=== PATIENT | female | born 2000 | race Caucasian/White ===

== ENCOUNTER 2019-05-25 22:53 | Emergency (ER) | payer MEDICAID ==
[~2019-05-25] VITALS: Ht 160 cm; Wt 68.0 kg
[2019-05-25 22:55] VITALS: BP 135/90
--- NOTE | 2019-05-25 22:58 | NUR ---
to lobby a/w bed ambulatory
--- NOTE | 2019-05-25 23:12 | NUR ---
PT TAKEN TO BED 6
--- NOTE | 2019-05-25 23:25 | NUR ---
Dr. Walker examining patient.
--- NOTE | 2019-05-25 23:25 | NUR ---
19 y/o female c/o batista x 2 -3 weeks that getting worse over time. rates pain 7/10 and describes it as throbbing and is located on the right side of head. pt states she has nausea, double vision, unsteady gait, dizziness. a&o x4. denies any head truama or injury. took ibuprofen x 1hr ago. nka. pmh: migraines
--- NOTE | 2019-05-25 23:27 | NUR ---
pernell haider at bedside to eval pt.
[2019-05-25] MEDS ORDERED: diphenhydrAMINE 50 MG/ML VIAL IM ONE (23:35)
[2019-05-25] MEDS ORDERED: PROCHLORPERAZINE 10 MG/2 ML VIAL IM ONE (23:35)
[2019-05-26 00:25] VITALS: BP 135/90
== END 2019-05-26 00:25 | disposition home or self-care (01) ==
LOC: MED 22:53
DX: G43.909 Migraine, unspecified, not intractable, without status migrainosus (principal); R11.0 Nausea; H53.149 Visual discomfort, unspecified
CPT/HCPCS: 81002; 81025; 96372; 99284; J0780; J1200

== ENCOUNTER 2019-06-13 11:12 | Emergency (ER) | payer MEDICAID ==
[~2019-06-13] VITALS: Ht 160 cm; Wt 69.4 kg
[2019-06-13 11:16] VITALS: BP 130/93
--- NOTE | 2019-06-13 11:25 | NUR ---
PT AMBULATED TO ER BED 04
--- NOTE | 2019-06-13 11:28 | NUR ---
flu swab collected and handed to lab
--- NOTE | 2019-06-13 11:33 | NUR ---
eturned from [facility] for sprink break with family c/o intermittent moist cough, nasal congestion, and scratchy throat x 2 days denies fever or sob---full clear speech, no accessory muscle use noted denies being in contact with anyone known with messina virus
--- NOTE | 2019-06-13 11:43 | NUR ---
xray at bedside.
[2019-06-13 12:06] LABS: APPEARANCE,URINE SL CLOUDY (CLEAR); BILIRUBIN,URINE NEGATIVE (NEGATIVE); BLOOD, URINE NEGATIVE (NEGATIVE); COLOR,URINE YELLOW (YELLOW); LEUKOCYTE ESTERASE ,URINE 3+ (NEGATIVE); NITRITE, URINE NEGATIVE (NEGATIVE); PH,URINE 6.5 (5.0-9.0); UGLUCOSE NEGATIVE (NEGATIVE)
[2019-06-13 12:24] LABS: RBC,URINE 0-5 /HPF (0-5)
--- NOTE | 2019-06-13 12:32 | NUR ---
pt. resting in bed comfortably, no further needs at this time. bed lowest, locked, rails up x1. AAOx4.
--- NOTE | 2019-06-13 13:06 | NUR ---
DPatient discharged with v/s stable. Written and verbal after care instructions given and explained. Patient alert, oriented and verbalized understanding of instructions. Ambulatory with steady gait. All questions addressed prior to discharge. ID band removed. Patient advised to follow up with PMD. Rx of PROMETHAZINE given. Patient educated on indication of medication including possible reaction and side effects. Opportunity to ask questions provided and answered.
[2019-06-13 13:07] VITALS: BP 140/92
== END 2019-06-13 13:06 | disposition home or self-care (01) ==
LOC: MED 11:12
DX: J06.9 Acute upper respiratory infection, unspecified (principal)
CPT/HCPCS: 71045; 81001; 81025; 87086; 87804; 99284; Q0092; 81002

== ENCOUNTER 2020-05-18 02:07 | Emergency (ER) | payer MEDICAID, OTHER ==
[~2020-05-18] VITALS: Ht 160 cm; Wt 70.8 kg
[2020-05-18 02:18] VITALS: BP 115/87
[2020-05-18] MEDS ORDERED: IBUPROFEN 800 MG TAB PO ONE (02:40)
[2020-05-18 03:05] VITALS: BP 121/79
== END 2020-05-18 03:05 | disposition home or self-care (01) ==
LOC: MED 02:07
DX: M94.0 Chondrocostal junction syndrome [Tietze] (principal); R03.0 Elevated blood-pressure reading, without diagnosis of hypertension
CPT/HCPCS: 93005; 99283

== ENCOUNTER 2020-11-17 03:50 | Emergency (ER) | payer OTHER ==
[~2020-11-17] VITALS: Ht 160 cm; Wt 70.3 kg
[2020-11-17 04:02] VITALS: BP 115/82
--- NOTE | 2020-11-17 04:15 | NUR ---
AMBULATED TO BED 9 FROM TRIAGE
--- NOTE | 2020-11-17 04:20 | NUR ---
Penelope shaw in [facility] - 11/17/20 at 0625 by [facility] TO ER BED 9
[2020-11-17] MEDS: METOCLOPRAMIDE 10 MG TAB PO ONE (05:16)
[2020-11-17] MEDS: IBUPROFEN 600 MG TAB PO ONE (05:17)
[2020-11-17] MEDS: SUMAtriptan succinate 50 MG TAB PO ONE (05:17)
[2020-11-17] MEDS ORDERED: METO-486 PO (05:32)
[2020-11-17 05:43] VITALS: BP 116/85
--- NOTE | 2020-11-17 05:43 | NUR ---
Patient discharged with v/s stable. Written and verbal after care instructions given and explained. Patient alert, oriented and verbalized understanding of instructions. Ambulatory with steady gait. All questions addressed prior to discharge. ID band removed. Patient advised to follow up with PMD. Rx of REGLAN given. Patient educated on indication of medication including possible reaction and side effects. Opportunity to ask questions provided and answered.
== END 2020-11-17 05:43 | disposition home or self-care (01) ==
LOC: MED 03:50
DX: G43.909 Migraine, unspecified, not intractable, without status migrainosus (principal); F17.210 Nicotine dependence, cigarettes, uncomplicated
CPT/HCPCS: 81025; 99284; J8597

== ENCOUNTER 2021-01-12 17:51 | Emergency (ER) | payer OTHER ==
[~2021-01-12] VITALS: Ht 160 cm; Wt 72.1 kg
[~2021-01-12 17:51] MED LIST: METO-486 PO
[2021-01-12 17:59] VITALS: BP 145/87
--- NOTE | 2021-01-12 18:45 | NUR ---
PT AMBULATED TO BED
--- NOTE | 2021-01-12 19:00 | NUR ---
20 Y/O F BIB SELF FROM HOME, C/O STATES SHE MAY HAVE HAD A POSSIBLE MISCARRIAGE, PT STATES TODAY SHE FELT CRAMPS, DISCHARGE, HEAVY BLEEDING WITH CLOTS. PT STATES SHE PASSED MASS A MASS TODAY WHEN BLEEDING. PT TAKES CONTROL PILLS HAD SPOTTING YESTERDAY AND CLOT TODAY. PT STATES 6/10 INTERMITTENT CRAMPING. PMH: DENIES NKA MED: MUTLIVITAMIN
--- NOTE | 2021-01-12 19:12 | NUR ---
Pt report given to ERWIN SANCHEZ. Transfer of care at this time.
--- NOTE | 2021-01-12 19:12 | NUR ---
REPORT RECEIVED FROM DANIEL SALDANA. TRANSFER OF CARE AT THIS TIME.
--- NOTE | 2021-01-12 19:20 | NUR ---
PT IS SITTING UP IN BED, AWAKE AND ALERT. DENIES PAIN AT THIS TIME. ALL NEEDS MET AT THIS TIME. BED LOCKED IN LOWEST POSITION, SIDE RAILS X1.
[2021-01-12 19:33] LABS: BASOPHILS % (AUTO) 0.5 % (0.0-2.0); EOSINOPHILS # (AUTO) 0.1 K/uL (0-0.4); EOSINOPHILS % (AUTO) 1.6 % (0.0-4.0); HEMATOCRIT 37.4 % (36-48); HEMOGLOBIN 12.3 g/dL (12.0-16.0); LYMPHOCYTES # (AUTO) 2.2 K/uL (2.5-16.5); LYMPHOCYTES % (AUTO) 30.9 % (20.5-51.1); MEAN CORPUSCULAR HEMOGLOBIN 31 pg (27-31); MEAN CORPUSCULAR HGB CONC 33 g/dL (33-37); MEAN CORPUSCULAR VOLUME 94.2 fL (80-94); MONOCYTES # (AUTO) 0.6 K/uL (0.8-1.0); MONOCYTES % (AUTO) 8.7 % (1.7-9.3); NEUTROPHILS # (AUTO) 4.1 K/uL (1.8-7.7); NEUTROPHILS % (AUTO) 58.3 % (42.2-75.2); PLATELET COUNT (AUTO) 340 K/uL (140-450); RED BLOOD CELL COUNT(AUTO) 3.97 MIL/uL (4.20-5.40); RED CELL DISTRIBUTION WIDTH 12.5 % (11.6-13.7)
[2021-01-12 19:34] LABS: APPEARANCE,URINE CLOUDY (CLEAR); BILIRUBIN,URINE NEGATIVE (NEGATIVE); BLOOD, URINE 3+ (NEGATIVE); COLOR,URINE YELLOW (YELLOW); LEUKOCYTE ESTERASE ,URINE NEGATIVE (NEGATIVE); NITRITE, URINE NEGATIVE (NEGATIVE); PH,URINE 7.5 (5.0-9.0); UGLUCOSE NEGATIVE (NEGATIVE)
[2021-01-12 19:44] LABS: ANION GAP 12.6 (8-16); CREATININE 0.6 mg/dL (0.6-1.3); POTASSIUM 3.6 mmol/L (3.5-5.1)
[2021-01-12 20:23] LABS: WBC,URINE 0-5 /HPF (0-5)
[2021-01-12 20:34] VITALS: BP 142/93
--- NOTE | 2021-01-12 20:34 | NUR ---
Patient discharged with v/s stable. Written and verbal after care instructions given and explained. Patient verbalized understanding. Ambulatory with steady gait. All questions addressed prior to discharge. Advised to follow up with PMD.
== END 2021-01-12 20:34 | disposition home or self-care (01) ==
LOC: MED 17:51
DX: N93.9 Abnormal uterine and vaginal bleeding, unspecified (principal); Z79.899 Other long term (current) drug therapy
CPT/HCPCS: 36415; 76817; 80048; 81001; 81025; 84702; 85025; 86900; 86901; 99284; Q0092

== ENCOUNTER 2021-08-14 10:36 | Emergency (ER) | payer OTHER ==
[~2021-08-14] VITALS: Ht 160 cm; Wt 68.0 kg
[2021-08-14 10:43] VITALS: BP 113/75
--- NOTE | 2021-08-14 10:48 | NUR ---
PT AMBULATED TO ER BED 5 WITH A STEADY GAIT.
[2021-08-14] MEDS ORDERED: PROCHLORPERAZINE 10 MG/2 ML VIAL IM ONE (11:00)
[2021-08-14] MEDS ORDERED: ACETAMINOPHEN EXTRA STRENGTH 500 MG TAB PO ONE (11:00)
[2021-08-14] MEDS ORDERED: diphenhydrAMINE 50 MG CAP PO ONE (11:00)
--- NOTE | 2021-08-14 11:00 | NUR ---
21 y/o female bib self with c/o headache x1 day. Patient states headache is 9/10 pressure pain radiating from right side of head to her ear. Patient denies any trauma or injury. Patient denies being around anyone sick. Patient has nausea. Denies vomiting, fever or chills. Medical History: Denies NKDA
--- NOTE | 2021-08-14 11:03 | NUR ---
21 Y/O FEMALE C/O HEADACHE RADIATES TO RIGHT SIDE 12/01 X1DAY. STATES +N/-V. DENIES FEVER/CHILLS. DENIES PMH NKA
[2021-08-14] MEDS ORDERED: ONDA-188 PO (11:58)
[2021-08-14] MEDS ORDERED: ACET-10509 PO (11:58)
--- NOTE | 2021-08-14 12:09 | NUR ---
Patient discharged with v/s stable. Written and verbal after care instructions given. Patient alert, oriented and verbalized understanding of instructions. Ambulatory with steady gait. All questions addressed prior to discharge. ID band removed. Patient advised to follow up with PMD. Rx of Acetaminophen Tab and Zofran given. Opportunity to ask questions provided and answered.
--- NOTE | 2021-08-14 12:13 | NUR ---
The patient's care was reviewed and supervised by Sally Martínez RN.
== END 2021-08-14 12:09 | disposition home or self-care (01) ==
LOC: MED 10:36
DX: G43.909 Migraine, unspecified, not intractable, without status migrainosus (principal)
CPT/HCPCS: 81002; 81025; 96372; 99283; J0780; Q0163

== ENCOUNTER 2022-07-13 19:26 | Emergency (ER) | payer OTHER ==
[~2022-07-13] VITALS: Ht 160 cm; Wt 73.9 kg
[~2022-07-13 19:26] MED LIST changes: +ACET-10509 PO; +ONDA-188 PO
[2022-07-13 19:32] VITALS: BP 120/77
--- NOTE | 2022-07-13 19:40 | NUR ---
TO LOBBY FOLLOWING TRIAGE
[2022-07-13] MEDS ORDERED: CEPH-588 PO (20:47)
[2022-07-13] MEDS ORDERED: IMI25 PO (20:48)
[2022-07-13 20:54] VITALS: BP 120/77
--- NOTE | 2022-07-13 20:54 | NUR ---
Patient discharged Written and verbal after care instructions given and explained. Patient alert, oriented and verbalized understanding of instructions. Ambulatory with steady gait. All questions addressed prior to discharge. ID band removed. Patient advised to follow up with PMD. Rx of Keflex and Imitrex given. Patient educated on indication of medication including possible reaction and side effects. Opportunity to ask questions provided and answered.
== END 2022-07-13 20:54 | disposition home or self-care (01) ==
LOC: MED 19:26
DX: L73.9 Follicular disorder, unspecified (principal); Z79.899 Other long term (current) drug therapy
CPT/HCPCS: 99283

== ENCOUNTER 2023-07-22 14:58 | Emergency (ER) | payer OTHER ==
[~2023-07-22] VITALS: Ht 160 cm; Wt 80.3 kg
[~2023-07-22 14:58] MED LIST changes: +CEPH-588 PO; +IMI25 PO
[2023-07-22 15:17] VITALS: BP 122/69; PULSE 82; RESP 20; TEMP 97.8; O2SAT 99
[2023-07-22] MEDS ORDERED: DOPPLER MC ONE ×2 (16:47→17:12)
[2023-07-23] MEDS ORDERED: ACET-10509 PO (05:21)
[2023-07-23] MEDS ORDERED: METR-435 PO (05:21)
== END 2023-07-22 17:28 | disposition home or self-care (01) ==
LOC: MED 14:58
DX: O9A.212 Injury, poisoning and certain other consequences of external causes complicating pregnancy, second trimester (principal); S39.81XA Other specified injuries of abdomen, initial encounter; Z3A.18 18 weeks gestation of pregnancy; X58.XXXA Exposure to other specified factors, initial encounter; Y93.89 Activity, other specified; Y92.89 Other specified places as the place of occurrence of the external cause; Y99.8 Other external cause status; Z79.899 Other long term (current) drug therapy
CPT/HCPCS: 76815; 99284; Q0092

== ENCOUNTER 2023-07-22 22:49 | Emergency (ER) | payer OTHER ==
[~2023-07-22] VITALS: Ht 160 cm; Wt 80.3 kg
[2023-07-22 23:16] VITALS: BP 124/75; PULSE 82; RESP 18; TEMP 98; O2SAT 100
[2023-07-23] MEDS: ACETAMINOPHEN EXTRA STRENGTH 500 MG TAB PO ONE (00:53)
[2023-07-23 01:11] LABS: APPEARANCE,URINE CLEAR (CLEAR); BILIRUBIN,URINE NEGATIVE (NEGATIVE); BLOOD, URINE NEGATIVE (NEGATIVE); COLOR,URINE YELLOW (YELLOW); LEUKOCYTE ESTERASE ,URINE NEGATIVE (NEGATIVE); NITRITE, URINE NEGATIVE (NEGATIVE); PROTEIN,URINE NEGATIVE (NEGATIVE); UGLUCOSE NEGATIVE (NEGATIVE); UROBILINOGEN,URINE 0.2 EU/dL (0.2 - 1)
[2023-07-23] MEDS ORDERED: ACET-10509 PO (05:21)
[2023-07-23] MEDS ORDERED: METR-435 PO (05:21)
[2023-07-23 05:30] VITALS: BP 109/70; PULSE 75; RESP 17; TEMP 97.6; O2SAT 99
== END 2023-07-23 05:30 | disposition home or self-care (01) ==
LOC: MED 22:49
DX: O20.0 Threatened abortion (principal); O23.592 Infection of other part of genital tract in pregnancy, second trimester; B96.89 Other specified bacterial agents as the cause of diseases classified elsewhere; Z3A.18 18 weeks gestation of pregnancy; Z79.899 Other long term (current) drug therapy
CPT/HCPCS: 36415; 76805; 81003; 86900; 86901; 87210; 99285; Q0092